=== PATIENT | male | born 1985 | race Caucasian/White ===

== ENCOUNTER → 2024-02-02 | Outpatient (REF) | payer OTHER ==
[2024-02-02 14:07] LABS: APPEARANCE, URINE CLEAR (CLEAR); BACTERIA, URINE AUTO NEGATIVE (NEGATIVE); BILIRUBIN, URINE AUTO NEGATIVE (NEGATIVE); BLOOD, URINE BLOOD NEGATIVE (NEGATIVE); COLOR, URINE YELLOW (YELLOW); GLUCOSE, URINE (UA) AUTO NEGATIVE (NEGATIVE); KETONE, URINE AUTO NEGATIVE (NEGATIVE); LEUKOCYTE ESTERASE, URINE AUTO NEGATIVE (NEGATIVE); MUCUS, URINE SMALL (NEGATIVE); NITRITE, URINE AUTO NEGATIVE (NEGATIVE); PROTEIN, URINE AUTO NEGATIVE (NEGATIVE); RBC, URINE AUTO 1 /HPF (0-3); SPECIFIC GRAVITY URINE AUTO 1.014 (1.002-1.035); SQUAMOUS EPITHELIAL CELL UR AU 0 /HPF (0-6); UROBILINOGEN, URINE AUTO 0.2 mg/dL (0.0-2.0); WBC, URINE AUTO 0 /HPF (0-3)
== END ==
LOC: M SMT 13:25
PROVIDERS: ATTEND Urology
DX: N50.89 Other specified disorders of the male genital organs (principal)

== ENCOUNTER 2024-03-22 09:09 | Day surgery (SDC) | payer OTHER ==
[~2024-03-22] VITALS: Ht 185.4 cm; Wt 83.3 kg
[2024-03-22] MEDS ORDERED: LR 1,000 ML IV SCH ×2 (09:30→11:40)
[2024-03-22] MEDS ORDERED: SUGAMMADEX SODIUM 500 MG/5 ML VIAL (BRIDION) As Ordered ONE (10:27)
[2024-03-22] MEDS ORDERED: ROCURONIUM BROMIDE 50MG/5ML VIAL As Ordered ONE (10:27)
[2024-03-22] MEDS ORDERED: propofoL 200 MG/20 ML VIAL As Ordered ONE (10:27)
[2024-03-22] MEDS ORDERED: LIDOCAINE 2% 100MG/5ML SDV (FOR ANES.) As Ordered ONE (10:27)
[2024-03-22] MEDS ORDERED: fentaNYL 100 MCG/2 ML INJECTION As Ordered ONE (10:28)
[2024-03-22] MEDS ORDERED: ONDANSETRON 4MG 2ML VIAL As Ordered ONE (10:28)
[2024-03-22] MEDS ORDERED: MIDAZOLAM INJ 2MG/2ML VIAL As Ordered ONE (10:28)
[2024-03-22] MEDS ORDERED: ACETAMINOPHEN 1000MG 100ML IV BAG As Ordered ONE (10:28)
[2024-03-22] MEDS ORDERED: dexmedeTOMIDine (4MCG/ML)200MCG/50ML BTL (PRECEDEX) As Ordered ONE (10:29)
[2024-03-22] MEDS: ceFAZolin SOD 2 GM in IV 1 EA IV ONE (10:55)
[2024-03-22] MEDS ORDERED: KETOROLAC 60MG 2ML VIAL As Ordered ONE (11:11)
[2024-03-22] MEDS ORDERED: GLYCOPYRROLATE INJ 0.2 MG/ML 2 ML VIAL As Ordered ONE (11:12)
[2024-03-22] MEDS: LIDOCAINE 2% MDV 20ML VIAL As Ordered ONE (11:32)
[2024-03-22] MEDS ORDERED: oxyCODONE 5MG TAB PO PRN (11:40)
[2024-03-22] MEDS ORDERED: fentaNYL 100 MCG/2 ML INJECTION IV PRN (11:40)
[2024-03-22] MEDS ORDERED: ONDANSETRON 4MG 2ML VIAL IV PRN (11:40)
[2024-03-22] MEDS ORDERED: HYDROMORPHONE HCL 0.5 MG/ 0.5 ML SYRINGE IV PRN (11:40)
[2024-03-22] MEDS ORDERED: CEPH500C PO (11:43)
[2024-03-22] MEDS ORDERED: HYDR-3713 PO (11:43)
[2024-03-22 12:45] VITALS: BP 136/83; TEMP 97.4; O2SAT 98
== END 2024-03-22 13:05 | disposition home or self-care (01) ==
LOC: M SDC 09:09
PROVIDERS: ATTEND Urology
DX: N50.89 Other specified disorders of the male genital organs (principal); F17.218 Nicotine dependence, cigarettes, with other nicotine-induced disorders
CPT/HCPCS: 54530; 88309; J0131; J0665; J0690; J1100; J1596; J1885; J2250; J2405; J3010